=== PATIENT | female | born 1950 | race Caucasian/White ===

== ENCOUNTER 2019-01-22 09:30 | Emergency (ER) | payer OTHER ==
[~2019-01-22] VITALS: Ht 160 cm; Wt 74.4 kg
[2019-01-22 10:09] VITALS: Ht 160 cm; Wt 74.4 kg
[2019-01-22 11:00] LABS: PLATELET COUNT 223 x10^3mcL (130-400)
[2019-01-22 11:10] LABS: CALCIUM 9.1 mg/dL (8.5-10.1); CARBON DIOXIDE 24.5 mmol/L (21-32); CHLORIDE SERUM 108 mmol/L (98-107); CREATININE SERUM 0.8 mg/dL (0.6-1.0); GFR1 > 60 mL/min; GLUCOSE SERUM 101 mg/dL (74-106); SODIUM SERUM 142 mmol/L (136-145)
[2019-01-22 11:15] LABS: ALBUMIN 3.5 g/dL (3.4-5.0); ALKALINE PHOSPHATASE 89 U/L (46-116); ALT/SGPT 19 U/L (14-59); AST/SGOT 25 U/L (15-37); BILIRUBIN TOTAL 0.63 mg/dL (0.20-1.00); CHOLESTEROL 188 mg/dL (<200); HDL CHOLESTEROL 69 mg/dL (40-60); PHOSPHOROUS 2.7 mg/dL (2.5-4.9); TOTAL PROTEIN, SERUM 7.6 g/dL (6.4-8.2); URIC ACID 4.2 mg/dL (2.6-6.0)
[2019-01-22 12:52] VITALS: BP 142/76
== END 2019-01-22 12:50 | disposition home or self-care (01) ==
LOC: ED 09:30
PROVIDERS: Emergency Medicine
DX: I16.0 Hypertensive urgency (principal); F32.9 Major depressive disorder, single episode, unspecified; F41.9 Anxiety disorder, unspecified; M19.90 Unspecified osteoarthritis, unspecified site
CPT/HCPCS: 36415; 99406; Q0092

== ENCOUNTER 2019-06-04 08:17 | Emergency (ER) | payer OTHER ==
[~2019-06-04] VITALS: Ht 160 cm; Wt 73.9 kg
[2019-06-04 08:33] VITALS: BP 149/107; Ht 160 cm; Wt 73.9 kg
== END 2019-06-04 09:09 | disposition home or self-care (01) ==
LOC: ED 08:17
DX: F41.9 Anxiety disorder, unspecified (principal); I10 Essential (primary) hypertension; F32.9 Major depressive disorder, single episode, unspecified